=== PATIENT | male | born 1955 | race African-American/Black ===

== ENCOUNTER 2017-02-17 13:42 | Inpatient (IN) | payer MEDICARE, MEDICAID ==
[~2017-02-17] VITALS: Ht 167.6 cm; Wt 84.8 kg
[~2017-02-17 13:42] MED LIST: QUET25TA PO; VIC PO
[2017-02-17] MEDS ORDERED: METHYLPREDNISOLONE SOD SUCC 125 MG/2 ML VIAL IV STA (15:28)
[2017-02-17] MEDS ORDERED: ALBUTEROL (0.083%) 2.5MG/3ML NEB HHN STA (15:28)
[2017-02-17] MEDS ORDERED: ACETAMINOPHEN 325MG TABLET PO STA (15:28)
[2017-02-17] MEDS ORDERED: IPRATROPIUM BROMIDE (0.02%) 0.5MG/2.5ML NEB HHN STA (15:28)
[2017-02-17] MEDS ORDERED: SODIUM CHLORIDE 0.9% 1000ML BAG (SEPSIS BOLUS) IV ONE (15:30)
[2017-02-17] MEDS ORDERED: LEVOFLOXACIN 750MG PREMIX 150 ML IV ONE (15:30)
[2017-02-17 15:57] LABS: BASOPHILS % 0.3 % (0.0-2.0); EOSINOPHILS % 0.3 % (0.0-5.0); HEMATOCRIT. 28.9 % (42.0-52.0); HEMOGLOBIN. 8.8 g/dL (14.0-18.0); LYMPHOCYTES % 9.1 % (20.0-50.0); MEAN CORPUSCULAR HEMOGLOBIN 21.6 pg (28.0-32.0); MEAN CORPUSCULAR HGB CONC 30.6 g/dL (31.0-37.0); MEAN CORPUSCULAR VOLUME 70.6 fL (80.0-94.0); MEAN PLATELET VOLUME 7.2 fl (7.4-10.4); MONOCYTES % 12.4 % (2.0-8.0); NEUTROPHILS % 77.9 % (40.0-76.0); PLATELET 340 x1000/uL (130-400); RED BLOOD CELL COUNT 4.09 mill/uL (4.7-6.1); RED CELL DISTRIBUTION WIDTH 22.5 % (11.6-14.6); WHITE BLOOD COUNT 11.3 x1000/uL (4.5-11.0)
[2017-02-17 15:59] LABS: ADD RBC MORPHOLOGY YES; DIFFERENTIAL COMMENT 1
[2017-02-17 16:00] LABS: INR 1.2; PROTHROMBIN TIME 12.9 sec
[2017-02-17 16:03] LABS: ALBUMIN 3.4 g/dL (3.4-5.0); ANION GAP 15; CALCIUM 8.3 mg/dL (8.5-10.1); CARBON DIOXIDE 25 mEq/L (21-32); CHLORIDE 99 mEq/L (98-107); INDEX HEMOLYSI 1 (1-3); INDEX ICTERIC 1 (1-4); INDEX LIPEMIC 1 (1-3); UREA NITROGEN BLOOD 6 mg/dL (7-21)
[2017-02-17 16:06] LABS: ALANINE AMINOTRANSFERASE 38 IU/L (13-61)
[2017-02-17 16:09] LABS: eGFR > 60 mL/min (>60)
[2017-02-17 16:10] LABS: NT PRO B-TYPE NATRIURETIC PEP 8556 pg/mL (5-125); TROPONIN I < 0.02 ng/mL (0.00-0.04)
[2017-02-17 16:34] LABS: CLARITY URINE CLEAR (CLEAR); COLOR URINE YELLOW (YELLOW); GLUCOSE URINE NEGATIVE (NEGATIVE); KETONES URINE 1+ (NEGATIVE); LEUKOCYTE ESTERASE URINE NEGATIVE (NEGATIVE); NITRITE URINE NEGATIVE (NEGATIVE); OCCULT BLOOD URINE NEGATIVE (NEGATIVE); PH URINE >=9.0 (4.5-8.0); PROTEIN URINE NEGATIVE (NEGATIVE); SPECIFIC GRAVITY URINE 1.011 (1.005-1.030); UROBILINOGEN URINE 0.2 E.U./dL (0.2-1.0)
[2017-02-17] MEDS ORDERED: POTASSIUM CHLORIDE 20MEQ TABLET SR PO SCH (18:45)
[2017-02-17 19:00] LABS: HYPOCHROMASIA 2+; PLATELET ESTIMATE NORMAL
[2017-02-17 19:01] LABS: ANISOCYTOSIS 2+
[2017-02-17] MEDS ORDERED: CLONIDINE 0.1MG TABLET PO PRN (19:45)
[2017-02-17] MEDS ORDERED: ACETAMINOPHEN 325MG TABLET PO PRN (19:45)
[2017-02-17] MEDS ORDERED: MAGNESIUM/ALUMINUM HYDROXIDE/SIMETHICONE 30ML UDC PO PRN (19:45)
[2017-02-17] MEDS ORDERED: DIPHENHYDRAMINE 50MG/ML VIAL IV PRN (19:45)
[2017-02-17] MEDS ORDERED: ONDANSETRON HCL 4MG/2ML VIAL IV PRN (19:45)
[2017-02-17] MEDS ORDERED: IPRATROPIUM/ALBUTEROL 0.5-3(2.5)MG/3ML NEB INH PRN (19:45)
[2017-02-17] MEDS ORDERED: POTASSIUM CHLORIDE 20MEQ TABLET SR PO NR ×2 (20:00→23:00)
[2017-02-17 20:06] LABS: MAGNESIUM 1.7 mg/dL (1.8-2.4)
[2017-02-17 20:53] VITALS: BP 123/82
[2017-02-17 21:00] VITALS: BP 123/82
[2017-02-17] MEDS ORDERED: METHYLPREDNISOLONE SOD SUCC 125 MG/2 ML VIAL IV SCH (22:00)
[2017-02-17] MEDS ORDERED: HYDR25TA PO (22:09)
[2017-02-17] MEDS ORDERED: HYDR-519 PO (22:10)
[2017-02-17] MEDS ORDERED: TRAM50TA3 PO (22:11)
[2017-02-17] MEDS ORDERED: QUETIAPINE FUMARATE 25MG TABLET PO SCH (22:30)
[2017-02-17] MEDS ORDERED: TRAMADOL 50MG TABLET PO PRN (22:30)
[2017-02-17] MEDS ORDERED: MAGNESIUM 2 G PREMIX 50 ML IV NR (22:30)
[2017-02-17] MEDS ORDERED: QUETIAPINE FUMARATE 100MG TABLET PO SCH (23:15)
[2017-02-17] MEDS: BUDESONIDE 0.5MG/2ML NEB HHN SCH (23:15)
[2017-02-17] MEDS: PROMETHAZINE/DEXTROMETHORPHAN 6.25-15MG/5ML BOTTLE 120ML PO PRN (23:37)
[2017-02-17] MEDS: TAMSULOSIN HCL 0.4MG SR CAPSULE PO SCH (23:37)
[2017-02-18] VITALS: BP 115/68
[2017-02-18] MEDS: IPRATROPIUM/ALBUTEROL 0.5-3(2.5)MG/3ML NEB HHN SCH ×6 (01:05→16:30)
[2017-02-18 03:54] LABS: *AMPHETAMINES SCREEN URINE NEGATIVE (NEGATIVE); *BARBITURATES SCREEN URINE NEGATIVE (NEGATIVE); *BENZODIAZEPINES SCREEN URINE NEGATIVE (NEGATIVE); *COCAINE SCREEN URINE PRESUMTIVE POSITIVE (NEGATIVE); CANNABINOID URINE SCREEN NEGATIVE (NEGATIVE); ECSTASY MDMA SCREEN URINE NEGATIVE (NEGATIVE); METHADONE URINE SCREEN NEGATIVE (NEGATIVE); OPIATES URINE SCREEN PRESUMTIVE POSITIVE (NEGATIVE); PHENCYCLIDINE URINE SCREEN NEGATIVE (NEGATIVE)
[2017-02-18 04:00] VITALS: BP 117/67
[2017-02-18] MEDS: PROMETHAZINE/DEXTROMETHORPHAN 6.25-15MG/5ML BOTTLE 120ML PO PRN ×2 (06:01→08:47)
[2017-02-18 07:50] LABS: ANION GAP 14; CALCIUM 8.3 mg/dL (8.5-10.1); CARBON DIOXIDE 26 mEq/L (21-32); CHLORIDE 102 mEq/L (98-107); INDEX HEMOLYSI 1 (1-3); INDEX ICTERIC 1 (1-4); INDEX LIPEMIC 1 (1-3); MAGNESIUM 2.4 mg/dL (1.8-2.4); UREA NITROGEN BLOOD 8 mg/dL (7-21); eGFR > 60 mL/min (>60)
[2017-02-18 08:00] VITALS: BP 146/71
[2017-02-18] MEDS: TAMSULOSIN HCL 0.4MG SR CAPSULE PO SCH (08:44)
[2017-02-18] MEDS ORDERED: GUAIFENESIN 600MG ER TABLET PO SCH (09:00)
[2017-02-18] MEDS ORDERED: POTASSIUM CHLORIDE 20MEQ TABLET SR PO SCH (09:00)
[2017-02-18] MEDS ORDERED: HYDROCHLOROTHIAZIDE 25MG TABLET PO SCH (09:00)
[2017-02-18] MEDS ORDERED: PREDNISONE 20MG TABLET PO SCH (09:00)
[2017-02-18] MEDS: BUDESONIDE 0.5MG/2ML NEB HHN SCH (11:15)
[2017-02-18 12:00] VITALS: BP 124/75
[2017-02-18] MEDS ORDERED: LEVOFLOXACIN 500MG PREMIX 100 ML IV SCH ×2 (15:00)
[2017-02-18 16:00] VITALS: BP 110/70
[2017-02-18 16:06] VITALS: BP 121/73
[2017-02-18] MEDS ORDERED: QUETIAPINE FUMARATE 25MG TABLET PO SCH (21:00)
== END 2017-02-18 17:20 | disposition home or self-care (01) | DRG 291 ==
LOC: ER 14:35 → 7WST 19:03
PROVIDERS: ADMIT Internal Medicine; ATTEND Internal Medicine
DX: I50.33 Acute on chronic diastolic (congestive) heart failure (principal); J96.00 Acute respiratory failure, unspecified whether with hypoxia or hypercapnia; J44.1 Chronic obstructive pulmonary disease with (acute) exacerbation; E87.6 Hypokalemia; F17.200 Nicotine dependence, unspecified, uncomplicated; G89.29 Other chronic pain; Z60.2 Problems related to living alone; E87.8 Other disorders of electrolyte and fluid balance, not elsewhere classified; F14.90 Cocaine use, unspecified, uncomplicated; F19.10 Other psychoactive substance abuse, uncomplicated; I11.0 Hypertensive heart disease with heart failure; K21.9 Gastro-esophageal reflux disease without esophagitis; S62.501A Fracture of unspecified phalanx of right thumb, initial encounter for closed fracture; M54.30 Sciatica, unspecified side; F99 Mental disorder, not otherwise specified; N40.0 Benign prostatic hyperplasia without lower urinary tract symptoms; D72.829 Elevated white blood cell count, unspecified; Z59.0 Homelessness; Z88.6 Allergy status to analgesic agent; Z79.899 Other long term (current) drug therapy; Z72.89 Other problems related to lifestyle; Z87.11 Personal history of peptic ulcer disease
CPT/HCPCS: 36415; 71010; 73110; 73130; 80048; 80053; 80305; 81003; 82962; 83605; 83735; 83880; 84484; 85025; 85610; 86850; 86900; 87040; 87086; 87804; 93005; 94640; 96365; 96366; 97161; 99285; J1956; J2930; J3475; J7030; J7050; J7512; J7611; J7620; J7626

== ENCOUNTER 2017-11-16 16:49 | Emergency (ER) | payer MEDICARE, MEDICAID ==
[~2017-11-16] VITALS: Ht 167.6 cm; Wt 76.0 kg
[~2017-11-16 16:49] MED LIST changes: +HYDR-519 PO; +HYDR25TA PO; +TRAM50TA3 PO
[2017-11-16] MEDS ORDERED: LIDOCAINE HCL 1% 20ML VIAL (Pyxis) INJ INFIL ONE (20:00)
[2017-11-16] MEDS ORDERED: HYDROCODONE/ACETAMINOPHEN 10/325MG TABLET PO NR (20:00)
[2017-11-16 20:05] VITALS: BP 127/73
== END 2017-11-16 22:25 | disposition home or self-care (01) ==
LOC: ER 16:54
DX: S00.03XA Contusion of scalp, initial encounter (principal); R51 Headache; V49.69XA Unspecified car occupant injured in collision with other motor vehicles in traffic accident, initial encounter; Y93.89 Activity, other specified; Y92.410 Unspecified street and highway as the place of occurrence of the external cause; I11.0 Hypertensive heart disease with heart failure; I50.9 Heart failure, unspecified; J44.9 Chronic obstructive pulmonary disease, unspecified; K21.9 Gastro-esophageal reflux disease without esophagitis
CPT/HCPCS: 10060; 70450; 99284; J3490

== ENCOUNTER → 2018-02-26 | Outpatient (CLI) | payer MEDICARE, MEDICAID ==
[~2018-02-26] MED LIST changes: +ATEN-42 PO
== END | disposition home or self-care (01) ==
LOC: CT 10:48
PROVIDERS: ATTEND Internal Medicine Critical Care Medicine
DX: J84.10 Pulmonary fibrosis, unspecified (principal); E11.9 Type 2 diabetes mellitus without complications; E78.5 Hyperlipidemia, unspecified; I10 Essential (primary) hypertension; F17.200 Nicotine dependence, unspecified, uncomplicated; Z79.899 Other long term (current) drug therapy
CPT/HCPCS: 71250

== ENCOUNTER 2018-07-14 17:56 | Inpatient (IN) | payer MEDICARE, MEDICAID ==
[~2018-07-14] VITALS: Ht 177.8 cm; Wt 76.0 kg
[~2018-07-14 17:56] MED LIST changes: -ATEN-42 PO; -HYDR-519 PO; -HYDR25TA PO; +PANT40SU MT; -VIC PO
[2018-07-14] MEDS ORDERED: IPRATROPIUM BROMIDE (0.02%) 0.5MG/2.5ML NEB HHN STA (18:09)
[2018-07-14] MEDS: ALBUTEROL (0.083%) 2.5MG/3ML NEB HHN SCH ×3 (18:25→19:30)
[2018-07-14 19:24] LABS: MEAN CORPUSCULAR HEMOGLOBIN 21.9 pg (28.0-32.0); MEAN CORPUSCULAR VOLUME 74.7 fL (80.0-94.0); MEAN PLATELET VOLUME 7.7 fl (7.4-10.4); PLATELET 260 x1000/uL (130-400); RED BLOOD CELL COUNT 2.17 mill/uL (4.7-6.1); RED CELL DISTRIBUTION WIDTH 22.1 % (11.6-14.6)
[2018-07-14 19:28] LABS: HEMATOCRIT. 16.2 % (42.0-52.0); HEMOGLOBIN. 4.8 g/dL (14.0-18.0)
[2018-07-14 19:39] LABS: CHLORIDE 97 mEq/L (98-107)
[2018-07-14] MEDS ORDERED: DEXTROSE 50% WATER 50ML SYRINGE IV ONE ×2 (19:58→20:00)
[2018-07-14 20:19] LABS: PLATELET ESTIMATE NORMAL
[2018-07-14] MEDS ORDERED: ALBUTEROL (0.083%) 2.5MG/3ML NEB HHN STA (20:21)
[2018-07-14 20:31] LABS: BG BASE EXCESS -9.5 mmol/L (-2.0-2.0); BG CARBOXYHEMOGLOBIN 0.7 % (0.5-1.5); BG DEOXYHEMOGLOBIN 30.3 % (0.0-5.0); BG FRACTION INSPIRED OXYGEN 40; BG METHEMOGLOBIN 0.3 % (0.0-1.5); BG OXYGEN SATURATION 69.4 % (92.0-98.5); BG OXYHEMOGLOBIN 68.7 % (94.0-97.0); BG PCO2 26.6 mmHg (35.0-45.0); BG PO2 43.6 mmHg (75.0-100.0); BG SAMPLE SITE RIGHT RADIAL; BG TOTAL HEMOGLOBIN 5.3 g/dL (12.0-18.0); BG VENT MODE NASAL CANNULA
[2018-07-14] MEDS ORDERED: ZOLPIDEM TARTRATE 5MG TABLET PO PRN (21:45)
[2018-07-14] MEDS ORDERED: MAGNESIUM/ALUMINUM HYDROXIDE/SIMETHICONE 30ML UDC PO PRN (21:45)
[2018-07-14] MEDS ORDERED: ONDANSETRON HCL 4MG/2ML INJ IV PRN (21:45)
[2018-07-14] MEDS ORDERED: DOCUSATE SODIUM 100MG CAPSULE PO PRN (21:45)
[2018-07-14] MEDS ORDERED: NITROGLYCERIN 0.4MG TABLET SL SL PRN (21:45)
[2018-07-14] MEDS ORDERED: HALOPERIDOL LACTATE 5MG/ML VIAL IM PRN (21:45)
[2018-07-14] MEDS ORDERED: NA PHOS,M-B/NA PHOS,DI-BA ENEMA 118ML PR PRN (21:45)
[2018-07-14] MEDS ORDERED: IPRATROPIUM/ALBUTEROL 0.5-3(2.5)MG/3ML NEB INH PRN (21:45)
[2018-07-14] MEDS ORDERED: CLONIDINE 0.1MG TABLET PO PRN (21:45)
[2018-07-14 22:14] LABS: TOTAL IRON BINDING CAPACITY 378 ug/dL (250-450)
[2018-07-14] MEDS ORDERED: DEXTROSE 50% WATER 50ML SYRINGE IV PRN (22:15)
[2018-07-14 22:35] LABS: FOLIC ACID (FOLATE) SERUM > 20.00 ng/mL (>5.38)
[2018-07-14 22:43] LABS: VITAMIN B12 SERUM 721 pg/mL (211-911)
[2018-07-15] VITALS (24 sets, daily range): BP systolic 100–160; BP diastolic 44–93
[2018-07-15] MEDS: IPRATROPIUM/ALBUTEROL 0.5-3(2.5)MG/3ML NEB HHN SCH ×6 (01:00→20:49)
[2018-07-15] MEDS: ACETAMINOPHEN 325MG TABLET PO PRN (01:15)
[2018-07-15] MEDS: GUAIFENESIN 200MG/10ML SUGAR FREE UDC PO PRN (01:39)
[2018-07-15] MEDS ORDERED: KCL 20MEQ/100ML PREMIX 100 ML IV NR ×2 (03:00→08:00)
[2018-07-15] MEDS ORDERED: PANTOPRAZOLE 80 MG in SODIUM CHLORIDE 0.9% 100 ML IV SCH ×4 (03:00)
[2018-07-15 03:28] LABS: *AMPHETAMINES SCREEN URINE NEGATIVE (NEGATIVE); *BARBITURATES SCREEN URINE NEGATIVE (NEGATIVE); *BENZODIAZEPINES SCREEN URINE NEGATIVE (NEGATIVE); *COCAINE SCREEN URINE NEGATIVE (NEGATIVE)
[2018-07-15 03:29] LABS: CANNABINOID URINE SCREEN NEGATIVE (NEGATIVE); METHADONE URINE SCREEN NEGATIVE (NEGATIVE); OPIATES URINE SCREEN NEGATIVE (NEGATIVE); PHENCYCLIDINE URINE SCREEN NEGATIVE (NEGATIVE)
[2018-07-15 05:54] LABS: ETHANOL BLOOD < 10 mg/dL
[2018-07-15] MEDS: BLOOD SUGAR DIAGNOSTIC STRIP TEST SCH ×4 (06:07→21:12)
[2018-07-15] MEDS: INSULIN LISPRO 100 UNITS/ML SUBCUT SCH ×4 (06:25→21:14)
[2018-07-15] MEDS ORDERED: HYDR-4009 PO (06:33)
[2018-07-15] MEDS: PANTOPRAZOLE 80 MG in SODIUM CHLORIDE 0.9% 100 ML IV SCH ×2 (08:04→16:21)
[2018-07-15] MEDS: DEXT 5%/0.45% NACL 1000ML 1,000 ML IV SCH ×2 (08:04→14:52)
[2018-07-15] MEDS: SPIRONOLACTONE 25MG TABLET PO SCH ×2 (08:05→21:12)
[2018-07-15] MEDS: GUAIFENESIN/DM 600MG/30MG ER TAB 12HR PO SCH ×2 (08:05→21:11)
[2018-07-15] MEDS: FUROSEMIDE 40MG/4ML VIAL IVP SCH ×2 (08:05→21:11)
[2018-07-15] MEDS: LISINOPRIL 20MG TABLET PO SCH ×2 (08:05→21:12)
[2018-07-15] MEDS ORDERED: QUETIAPINE FUMARATE 50MG TABLET PO SCH (09:00)
[2018-07-15] MEDS: BUDESONIDE 0.5MG/2ML NEB HHN SCH ×2 (09:14→20:49)
[2018-07-15] MEDS: LORAZEPAM 0.5MG TABLET PO PRN ×2 (10:32→14:51)
[2018-07-15 11:23] LABS: BG BASE EXCESS 4.5 mmol/L (-2.0-2.0); BG BILEVEL POS AIRWAY PRESSURE 15/5; BG CARBOXYHEMOGLOBIN 1.2 % (0.5-1.5); BG DEOXYHEMOGLOBIN 2.5 % (0.0-5.0); BG FRACTION INSPIRED OXYGEN 75; BG HCO3 ACT 28.6 mmol/L (22.0-26.0); BG METHEMOGLOBIN 0.4 % (0.0-1.5); BG OXYGEN SATURATION 97.5 % (92.0-98.5); BG OXYHEMOGLOBIN 95.9 % (94.0-97.0); BG PCO2 40.5 mmHg (35.0-45.0); BG PH 7.467 (7.350-7.450); BG PO2 102.3 mmHg (75.0-100.0); BG SAMPLE SITE RIGHT RADIAL; BG TOTAL HEMOGLOBIN 8.9 g/dL (12.0-18.0); BG VENT MODE MASK - BIPAP; BG VENT RATE 20 set
[2018-07-15] MEDS: THIAMINE HCL 100MG TABLET PO SCH (11:30)
[2018-07-15] MEDS: FOLIC ACID 1MG TABLET PO SCH (11:30)
[2018-07-15] MEDS: MULTIVITAMINS,THER W-MINERALS TABLET PO SCH (11:30)
[2018-07-15] MEDS: METHYLPREDNISOLONE SOD SUCC 40 MG/ML VIAL IV SCH ×2 (11:30→17:08)
[2018-07-15 12:32] LABS: HEMATOCRIT. 23.7 % (42.0-52.0); HEMOGLOBIN. 7.8 g/dL (14.0-18.0); MEAN CORPUSCULAR HEMOGLOBIN 24.6 pg (28.0-32.0); MEAN CORPUSCULAR VOLUME 75.2 fL (80.0-94.0); MEAN PLATELET VOLUME 7.5 fl (7.4-10.4); PLATELET 196 x1000/uL (130-400); RED BLOOD CELL COUNT 3.15 mill/uL (4.7-6.1); RED CELL DISTRIBUTION WIDTH 21.5 % (11.6-14.6)
[2018-07-15 12:40] LABS: CHLORIDE 97 mEq/L (98-107)
[2018-07-15] MEDS ORDERED: POTASSIUM CHLORIDE 20MEQ TABLET SR PO NR (13:00)
[2018-07-15] MEDS: LEVOFLOXACIN 750MG PREMIX 150 ML IV SCH (13:06)
[2018-07-15 13:44] LABS: PLATELET ESTIMATE NORMAL
[2018-07-15] MEDS ORDERED: MAGNESIUM 2 G PREMIX 50 ML IV NR (15:00)
[2018-07-15] MEDS: PANTOPRAZOLE SODIUM 40 MG/VIAL IV SCH (16:21)
[2018-07-15] MEDS: SUCRALFATE 1 G/10 ML UDC PO SCH ×2 (17:07→23:51)
[2018-07-15] MEDS: QUETIAPINE FUMARATE 100MG TABLET PO SCH (21:12)
[2018-07-16] VITALS (12 sets, daily range): BP systolic 91–111; BP diastolic 40–89
[2018-07-16] MEDS: IPRATROPIUM/ALBUTEROL 0.5-3(2.5)MG/3ML NEB HHN SCH ×6 (00:13→21:00)
[2018-07-16] MEDS: METHYLPREDNISOLONE SOD SUCC 40 MG/ML VIAL IV SCH ×3 (02:36→17:42)
[2018-07-16] MEDS: PANTOPRAZOLE 80 MG in SODIUM CHLORIDE 0.9% 100 ML IV SCH (02:53)
[2018-07-16] MEDS: DEXT 5%/0.45% NACL 1000ML 1,000 ML IV SCH ×2 (04:03→17:41)
[2018-07-16] MEDS: SUCRALFATE 1 G/10 ML UDC PO SCH ×3 (05:50→17:42)
[2018-07-16] MEDS: BLOOD SUGAR DIAGNOSTIC STRIP TEST SCH ×4 (06:24→21:05)
[2018-07-16 07:23] LABS: HEMATOCRIT. 26.1 % (42.0-52.0); HEMOGLOBIN. 8.5 g/dL (14.0-18.0); MEAN CORPUSCULAR HEMOGLOBIN 25.4 pg (28.0-32.0); MEAN CORPUSCULAR VOLUME 77.6 fL (80.0-94.0); MEAN PLATELET VOLUME 7.9 fl (7.4-10.4); PLATELET 205 x1000/uL (130-400); RED BLOOD CELL COUNT 3.36 mill/uL (4.7-6.1); RED CELL DISTRIBUTION WIDTH 21.4 % (11.6-14.6)
[2018-07-16 07:40] LABS: CHLORIDE 95 mEq/L (98-107)
[2018-07-16] MEDS: INSULIN LISPRO 100 UNITS/ML SUBCUT SCH ×4 (08:21→21:07)
[2018-07-16] MEDS: GUAIFENESIN/DM 600MG/30MG ER TAB 12HR PO SCH ×2 (08:21→21:05)
[2018-07-16] MEDS: FOLIC ACID 1MG TABLET PO SCH (08:21)
[2018-07-16] MEDS: POTASSIUM CHLORIDE 20MEQ TABLET SR PO SCH (08:22)
[2018-07-16] MEDS: MULTIVITAMINS,THER W-MINERALS TABLET PO SCH (08:22)
[2018-07-16] MEDS: THIAMINE HCL 100MG TABLET PO SCH (08:22)
[2018-07-16] MEDS: PANTOPRAZOLE SODIUM 40 MG/VIAL IV SCH ×2 (08:22→17:41)
[2018-07-16] MEDS: FUROSEMIDE 40MG/4ML VIAL IVP SCH ×2 (08:22→21:05)
[2018-07-16] MEDS: SPIRONOLACTONE 25MG TABLET PO SCH ×2 (08:22→21:05)
[2018-07-16] MEDS: LISINOPRIL 20MG TABLET PO SCH ×2 (08:23→21:05)
[2018-07-16] MEDS: BUDESONIDE 0.5MG/2ML NEB HHN SCH ×2 (09:14→21:01)
[2018-07-16 10:42] LABS: PLATELET ESTIMATE NORMAL
[2018-07-16] MEDS ORDERED: POTASSIUM CHLORIDE 20MEQ TABLET SR PO NR (12:00)
[2018-07-16] MEDS: FERROUS SULFATE 325MG TABLET PO SCH ×2 (12:10→17:41)
[2018-07-16] MEDS: LEVOFLOXACIN 750MG PREMIX 150 ML IV SCH (12:10)
[2018-07-16 15:26] LABS: HEMATOCRIT 24.9 % (42.0-52.0)
[2018-07-16] MEDS: QUETIAPINE FUMARATE 100MG TABLET PO SCH (21:05)
[2018-07-16] MEDS: ASCORBIC ACID 500 MG TABLET PO SCH (21:05)
[2018-07-16] MEDS: GUAIFENESIN 200MG/10ML SUGAR FREE UDC PO PRN (21:12)
[2018-07-17] VITALS (16 sets, daily range): BP systolic 95–132; BP diastolic 32–73
[2018-07-17] MEDS: SUCRALFATE 1 G/10 ML UDC PO SCH ×5 (00:32→23:18)
[2018-07-17] MEDS: IPRATROPIUM/ALBUTEROL 0.5-3(2.5)MG/3ML NEB HHN SCH ×5 (01:07→21:09)
[2018-07-17] MEDS: METHYLPREDNISOLONE SOD SUCC 40 MG/ML VIAL IV SCH ×3 (02:02→17:35)
[2018-07-17] MEDS: INSULIN LISPRO 100 UNITS/ML SUBCUT SCH ×4 (06:24→20:33)
[2018-07-17] MEDS: DEXT 5%/0.45% NACL 1000ML 1,000 ML IV SCH (06:24)
[2018-07-17] MEDS: BLOOD SUGAR DIAGNOSTIC STRIP TEST SCH ×4 (06:24→20:31)
[2018-07-17 07:48] LABS: HEMATOCRIT. 24.4 % (42.0-52.0); MEAN CORPUSCULAR HEMOGLOBIN 25.6 pg (28.0-32.0); MEAN CORPUSCULAR VOLUME 77.5 fL (80.0-94.0); MEAN PLATELET VOLUME 7.8 fl (7.4-10.4); PLATELET 184 x1000/uL (130-400); RED BLOOD CELL COUNT 3.14 mill/uL (4.7-6.1); RED CELL DISTRIBUTION WIDTH 21.2 % (11.6-14.6)
[2018-07-17] MEDS: ASCORBIC ACID 500 MG TABLET PO SCH ×2 (07:57→19:43)
[2018-07-17] MEDS: POTASSIUM CHLORIDE 20MEQ TABLET SR PO SCH ×2 (07:59→17:34)
[2018-07-17] MEDS: FOLIC ACID 1MG TABLET PO SCH (07:59)
[2018-07-17] MEDS: FUROSEMIDE 40MG/4ML VIAL IVP SCH ×2 (07:59→19:42)
[2018-07-17] MEDS: FERROUS SULFATE 325MG TABLET PO SCH ×3 (07:59→17:34)
[2018-07-17] MEDS: MULTIVITAMINS,THER W-MINERALS TABLET PO SCH (07:59)
[2018-07-17] MEDS: GUAIFENESIN/DM 600MG/30MG ER TAB 12HR PO SCH ×2 (07:59→19:43)
[2018-07-17] MEDS: PANTOPRAZOLE SODIUM 40 MG/VIAL IV SCH ×2 (07:59→17:36)
[2018-07-17] MEDS: THIAMINE HCL 100MG TABLET PO SCH (08:00)
[2018-07-17] MEDS: LISINOPRIL 20MG TABLET PO SCH ×3 (08:11→20:25)
[2018-07-17 08:28] LABS: CHLORIDE 91 mEq/L (98-107)
[2018-07-17] MEDS: SODIUM CHLORIDE 0.9% 1,000 ML IV SCH (09:30)
[2018-07-17] MEDS: SPIRONOLACTONE 25MG TABLET PO SCH ×2 (09:53→20:25)
[2018-07-17] MEDS: GUAIFENESIN 200MG/10ML SUGAR FREE UDC PO PRN ×2 (10:03→23:18)
[2018-07-17 10:54] LABS: BG BASE EXCESS 1.1 mmol/L (-2.0-2.0); BG BILEVEL POS AIRWAY PRESSURE 15/5; BG CARBOXYHEMOGLOBIN 0.3 % (0.5-1.5); BG DEOXYHEMOGLOBIN 12.4 % (0.0-5.0); BG FRACTION INSPIRED OXYGEN 75; BG HCO3 ACT 25.3 mmol/L (22.0-26.0); BG METHEMOGLOBIN 0.4 % (0.0-1.5); BG OXYGEN SATURATION 87.5 % (92.0-98.5); BG OXYHEMOGLOBIN 86.9 % (94.0-97.0); BG PCO2 38.5 mmHg (35.0-45.0); BG PH 7.436 (7.350-7.450); BG PO2 52.3 mmHg (75.0-100.0); BG SAMPLE SITE RIGHT RADIAL; BG TOTAL HEMOGLOBIN 9.1 g/dL (12.0-18.0); BG VENT MODE MASK - BIPAP
[2018-07-17] MEDS: LEVOFLOXACIN 750MG PREMIX 150 ML IV SCH (13:44)
[2018-07-17 14:20] LABS: PLATELET ESTIMATE NORMAL
[2018-07-17] MEDS ORDERED: LIDOCAINE HCL/PF 1% 2ML VIAL ONE (14:47)
[2018-07-17] MEDS: ACETAMINOPHEN 325MG TABLET PO PRN (19:43)
[2018-07-17] MEDS: QUETIAPINE FUMARATE 100MG TABLET PO SCH (20:25)
[2018-07-17] MEDS: BUDESONIDE 0.5MG/2ML NEB HHN SCH (21:08)
[2018-07-17] MEDS ORDERED: IOHEXOL-350 100 ML BOTTLE ONE (22:48)
[2018-07-18] VITALS (12 sets, daily range): BP systolic 104–152; BP diastolic 49–69
[2018-07-18] MEDS: IPRATROPIUM/ALBUTEROL 0.5-3(2.5)MG/3ML NEB HHN SCH ×6 (00:54→20:23)
[2018-07-18] MEDS: METHYLPREDNISOLONE SOD SUCC 40 MG/ML VIAL IV SCH ×3 (01:34→18:28)
[2018-07-18] MEDS: SODIUM CHLORIDE 0.9% 1,000 ML IV SCH (05:30)
[2018-07-18] MEDS: SUCRALFATE 1 G/10 ML UDC PO SCH ×3 (06:42→18:28)
[2018-07-18] MEDS: BLOOD SUGAR DIAGNOSTIC STRIP TEST SCH ×4 (06:44→20:33)
[2018-07-18] MEDS: FERROUS SULFATE 325MG TABLET PO SCH ×3 (07:53→17:20)
[2018-07-18] MEDS: INSULIN LISPRO 100 UNITS/ML SUBCUT SCH ×4 (07:54→20:33)
[2018-07-18 08:20] LABS: HEMATOCRIT 26.1 % (42.0-52.0); HEMOGLOBIN 8.3 g/dL (14.0-18.0); MEAN CORPUSCULAR VOLUME 78.8 fL (80.0-94.0); PLATELET 215 x1000/uL (130-400); RED BLOOD CELL COUNT 3.32 mill/uL (4.7-6.1); RED CELL DISTRIBUTION WIDTH 22.2 % (11.6-14.6)
[2018-07-18] MEDS: BUDESONIDE 0.5MG/2ML NEB HHN SCH ×2 (08:33→20:22)
[2018-07-18 08:39] LABS: CHLORIDE 97 mEq/L (98-107)
[2018-07-18] MEDS: GUAIFENESIN/DM 600MG/30MG ER TAB 12HR PO SCH ×2 (08:58→20:09)
[2018-07-18] MEDS: THIAMINE HCL 100MG TABLET PO SCH (08:59)
[2018-07-18] MEDS: LISINOPRIL 20MG TABLET PO SCH ×2 (08:59→20:10)
[2018-07-18] MEDS: MULTIVITAMINS,THER W-MINERALS TABLET PO SCH (08:59)
[2018-07-18] MEDS: FUROSEMIDE 40MG/4ML VIAL IVP SCH ×2 (08:59→20:10)
[2018-07-18] MEDS: POTASSIUM CHLORIDE 20MEQ TABLET SR PO SCH ×2 (08:59→17:00)
[2018-07-18] MEDS: PANTOPRAZOLE SODIUM 40 MG/VIAL IV SCH ×2 (08:59→17:00)
[2018-07-18] MEDS: ASCORBIC ACID 500 MG TABLET PO SCH ×2 (08:59→20:10)
[2018-07-18] MEDS: SPIRONOLACTONE 25MG TABLET PO SCH ×2 (08:59→20:09)
[2018-07-18] MEDS: FOLIC ACID 1MG TABLET PO SCH (09:04)
[2018-07-18] MEDS: LEVOFLOXACIN 750MG PREMIX 150 ML IV SCH (12:09)
[2018-07-18] MEDS: QUETIAPINE FUMARATE 100MG TABLET PO SCH (20:10)
[2018-07-18] MEDS: ACETAMINOPHEN 325MG TABLET PO PRN (20:22)
[2018-07-18] MEDS ORDERED: BUDESONIDE 0.5MG/2ML NEB ONE (20:29)
[2018-07-19] VITALS (13 sets, daily range): BP systolic 108–162; BP diastolic 49–80
[2018-07-19] MEDS: SUCRALFATE 1 G/10 ML UDC PO SCH ×5 (00:01→23:03)
[2018-07-19] MEDS: IPRATROPIUM/ALBUTEROL 0.5-3(2.5)MG/3ML NEB HHN SCH ×6 (00:20→21:57)
[2018-07-19] MEDS: SODIUM CHLORIDE 0.9% 1,000 ML IV SCH ×4 (01:30→23:07)
[2018-07-19] MEDS: METHYLPREDNISOLONE SOD SUCC 40 MG/ML VIAL IV SCH ×3 (04:27→18:26)
[2018-07-19] MEDS: BLOOD SUGAR DIAGNOSTIC STRIP TEST SCH ×4 (05:59→21:00)
[2018-07-19] MEDS: INSULIN LISPRO 100 UNITS/ML SUBCUT SCH ×4 (07:20→21:00)
[2018-07-19] MEDS: POTASSIUM CHLORIDE 20MEQ TABLET SR PO SCH ×2 (08:31→18:26)
[2018-07-19] MEDS: PANTOPRAZOLE SODIUM 40 MG/VIAL IV SCH ×2 (08:31→18:26)
[2018-07-19] MEDS: FOLIC ACID 1MG TABLET PO SCH (08:32)
[2018-07-19] MEDS: FUROSEMIDE 40MG/4ML VIAL IVP SCH ×2 (08:32→22:11)
[2018-07-19] MEDS: LISINOPRIL 20MG TABLET PO SCH ×2 (08:32→22:13)
[2018-07-19] MEDS: MULTIVITAMINS,THER W-MINERALS TABLET PO SCH (08:32)
[2018-07-19] MEDS: SPIRONOLACTONE 25MG TABLET PO SCH ×2 (08:32→21:00)
[2018-07-19] MEDS: THIAMINE HCL 100MG TABLET PO SCH (08:32)
[2018-07-19] MEDS: GUAIFENESIN/DM 600MG/30MG ER TAB 12HR PO SCH ×2 (08:32→22:12)
[2018-07-19] MEDS: ASCORBIC ACID 500 MG TABLET PO SCH ×2 (08:33→22:14)
[2018-07-19] MEDS: FERROUS SULFATE 325MG TABLET PO SCH ×3 (08:33→18:26)
[2018-07-19] MEDS: BUDESONIDE 0.5MG/2ML NEB HHN SCH ×2 (12:01→21:57)
[2018-07-19] MEDS: LEVOFLOXACIN 750MG PREMIX 150 ML IV SCH (12:47)
[2018-07-19] MEDS: QUETIAPINE FUMARATE 100MG TABLET PO SCH (22:13)
[2018-07-20] VITALS (11 sets, daily range): BP systolic 120–156; BP diastolic 53–90
[2018-07-20] MEDS ORDERED: ZOLPIDEM TARTRATE 5MG TABLET PO PRN (00:15)
[2018-07-20] MEDS: IPRATROPIUM/ALBUTEROL 0.5-3(2.5)MG/3ML NEB HHN SCH ×6 (02:05→20:40)
[2018-07-20] MEDS: METHYLPREDNISOLONE SOD SUCC 40 MG/ML VIAL IV SCH ×2 (06:11→17:20)
[2018-07-20] MEDS: BLOOD SUGAR DIAGNOSTIC STRIP TEST SCH ×4 (06:11→21:28)
[2018-07-20] MEDS: SUCRALFATE 1 G/10 ML UDC PO SCH ×3 (06:11→17:21)
[2018-07-20 07:00] LABS: HEMATOCRIT. 29.2 % (42.0-52.0); HEMOGLOBIN. 9.1 g/dL (14.0-18.0); MEAN CORPUSCULAR HEMOGLOBIN 24.7 pg (28.0-32.0); MEAN PLATELET VOLUME 7.8 fl (7.4-10.4); PLATELET 302 x1000/uL (130-400); RED CELL DISTRIBUTION WIDTH 22.5 % (11.6-14.6)
[2018-07-20] MEDS: FUROSEMIDE 40MG/4ML VIAL IVP SCH ×2 (08:40→21:34)
[2018-07-20] MEDS: MULTIVITAMINS,THER W-MINERALS TABLET PO SCH (08:40)
[2018-07-20] MEDS: PANTOPRAZOLE SODIUM 40 MG/VIAL IV SCH ×2 (08:40→16:13)
[2018-07-20] MEDS: FERROUS SULFATE 325MG TABLET PO SCH ×3 (08:41→16:21)
[2018-07-20] MEDS: GUAIFENESIN/DM 600MG/30MG ER TAB 12HR PO SCH ×2 (08:41→21:35)
[2018-07-20] MEDS: THIAMINE HCL 100MG TABLET PO SCH (08:41)
[2018-07-20] MEDS: LISINOPRIL 20MG TABLET PO SCH ×2 (08:41→21:35)
[2018-07-20] MEDS: POTASSIUM CHLORIDE 20MEQ TABLET SR PO SCH ×2 (08:41→16:13)
[2018-07-20] MEDS: ASCORBIC ACID 500 MG TABLET PO SCH ×2 (08:41→21:35)
[2018-07-20] MEDS: SPIRONOLACTONE 25MG TABLET PO SCH ×2 (08:41→21:39)
[2018-07-20 08:42] LABS: CHLORIDE 102 mEq/L (98-107)
[2018-07-20] MEDS: FOLIC ACID 1MG TABLET PO SCH (08:42)
[2018-07-20 08:54] LABS: BG BASE EXCESS -2.6 mmol/L (-2.0-2.0); BG BILEVEL POS AIRWAY PRESSURE ST=15/5; BG CARBOXYHEMOGLOBIN 0.5 % (0.5-1.5); BG DEOXYHEMOGLOBIN 14.2 % (0.0-5.0); BG FRACTION INSPIRED OXYGEN 90; BG HCO3 ACT 21.2 mmol/L (22.0-26.0); BG METHEMOGLOBIN 0.6 % (0.0-1.5); BG OXYGEN SATURATION 85.6 % (92.0-98.5); BG OXYHEMOGLOBIN 84.7 % (94.0-97.0); BG PCO2 32.9 mmHg (35.0-45.0); BG PH 7.427 (7.350-7.450); BG PO2 53.5 mmHg (75.0-100.0); BG PRESSURE SUPPORT 10; BG SAMPLE SITE LEFT RADIAL; BG TOTAL HEMOGLOBIN 9.9 g/dL (12.0-18.0); BG VENT MODE MASK - BIPAP; BG VENT RATE 20 set
[2018-07-20] MEDS: INSULIN LISPRO 100 UNITS/ML SUBCUT SCH ×4 (08:58→21:36)
[2018-07-20] MEDS: BUDESONIDE 0.5MG/2ML NEB HHN SCH ×2 (09:16→20:41)
[2018-07-20] MEDS ORDERED: METRONIDAZOLE 500 MG PREMIX 100 ML IV SCH (12:00)
[2018-07-20] MEDS: CEFEPIME 1,000 MG in DEXTROSE 5% WATER 50 ML IV SCH (12:48)
[2018-07-20 13:45] LABS: PLATELET ESTIMATE NORMAL
[2018-07-20] MEDS: METRONIDAZOLE 500 MG PREMIX 100 ML IV SCH ×2 (13:56→21:37)
[2018-07-20] MEDS: GUAIFENESIN 200MG/10ML SUGAR FREE UDC PO PRN (15:20)
[2018-07-20] MEDS: QUETIAPINE FUMARATE 100MG TABLET PO SCH (21:35)
[2018-07-20] MEDS: SODIUM CHLORIDE 0.9% 1,000 ML IV SCH (21:54)
[2018-07-21] VITALS (15 sets, daily range): BP systolic 94–157; BP diastolic 46–78
[2018-07-21] MEDS: IPRATROPIUM/ALBUTEROL 0.5-3(2.5)MG/3ML NEB HHN SCH ×6 (00:31→21:12)
[2018-07-21] MEDS: SUCRALFATE 1 G/10 ML UDC PO SCH ×4 (01:53→18:21)
[2018-07-21] MEDS: CEFEPIME 1,000 MG in DEXTROSE 5% WATER 50 ML IV SCH ×2 (01:54→12:03)
[2018-07-21] MEDS: METRONIDAZOLE 500 MG PREMIX 100 ML IV SCH ×3 (06:14→22:55)
[2018-07-21] MEDS: BLOOD SUGAR DIAGNOSTIC STRIP TEST SCH ×4 (06:14→20:44)
[2018-07-21] MEDS: METHYLPREDNISOLONE SOD SUCC 40 MG/ML VIAL IV SCH ×2 (06:14→18:15)
[2018-07-21] MEDS: BUDESONIDE 0.5MG/2ML NEB HHN SCH ×3 (08:55→21:12)
[2018-07-21] MEDS: POTASSIUM CHLORIDE 20MEQ TABLET SR PO SCH ×2 (08:57→18:15)
[2018-07-21] MEDS: ASCORBIC ACID 500 MG TABLET PO SCH ×2 (08:57→20:44)
[2018-07-21] MEDS: LISINOPRIL 20MG TABLET PO SCH ×2 (08:57→20:44)
[2018-07-21] MEDS: SPIRONOLACTONE 25MG TABLET PO SCH ×2 (08:58→20:53)
[2018-07-21] MEDS: FOLIC ACID 1MG TABLET PO SCH (08:58)
[2018-07-21] MEDS: MULTIVITAMINS,THER W-MINERALS TABLET PO SCH (08:58)
[2018-07-21] MEDS: FERROUS SULFATE 325MG TABLET PO SCH ×3 (08:58→18:15)
[2018-07-21] MEDS: THIAMINE HCL 100MG TABLET PO SCH (08:58)
[2018-07-21] MEDS: PANTOPRAZOLE SODIUM 40 MG/VIAL IV SCH ×2 (08:59→17:00)
[2018-07-21] MEDS: INSULIN LISPRO 100 UNITS/ML SUBCUT SCH ×4 (08:59→20:45)
[2018-07-21] MEDS: GUAIFENESIN/DM 600MG/30MG ER TAB 12HR PO SCH ×2 (08:59→20:44)
[2018-07-21] MEDS: FUROSEMIDE 40MG/4ML VIAL IVP SCH ×2 (08:59→20:44)
[2018-07-21] MEDS: ACETAMINOPHEN 325MG TABLET PO PRN ×2 (11:03→18:24)
[2018-07-21] MEDS: SODIUM CHLORIDE 0.9% 1,000 ML IV SCH (12:04)
[2018-07-21 14:38] LABS: BG BASE EXCESS 3.2 mmol/L (-2.0-2.0); BG BILEVEL POS AIRWAY PRESSURE ST=15/5; BG CARBOXYHEMOGLOBIN 0.8 % (0.5-1.5); BG DEOXYHEMOGLOBIN 6.7 % (0.0-5.0); BG FRACTION INSPIRED OXYGEN 100; BG METHEMOGLOBIN 0.4 % (0.0-1.5); BG OXYGEN SATURATION 93.2 % (92.0-98.5); BG OXYHEMOGLOBIN 92.1 % (94.0-97.0); BG PCO2 43.8 mmHg (35.0-45.0); BG PH 7.424 (7.350-7.450); BG PO2 65.6 mmHg (75.0-100.0); BG PRESSURE SUPPORT 10; BG SAMPLE SITE LEFT RADIAL; BG TOTAL HEMOGLOBIN 10.5 g/dL (12.0-18.0); BG VENT MODE MASK - BIPAP; BG VENT RATE 20 set
[2018-07-21] MEDS: QUETIAPINE FUMARATE 100MG TABLET PO SCH (20:44)
[2018-07-21 22:03] LABS: BG BASE EXCESS 4.6 mmol/L (-2.0-2.0); BG BILEVEL POS AIRWAY PRESSURE 15/5; BG CARBOXYHEMOGLOBIN 0.5 % (0.5-1.5); BG FRACTION INSPIRED OXYGEN 100; BG HCO3 ACT 29.1 mmol/L (22.0-26.0); BG METHEMOGLOBIN 0.4 % (0.0-1.5); BG OXYGEN SATURATION 90.9 % (92.0-98.5); BG OXYHEMOGLOBIN 90.1 % (94.0-97.0); BG PCO2 43.5 mmHg (35.0-45.0); BG PH 7.444 (7.350-7.450); BG PO2 60.6 mmHg (75.0-100.0); BG SAMPLE SITE RIGHT RADIAL; BG TOTAL HEMOGLOBIN 10.4 g/dL (12.0-18.0); BG VENT MODE MASK - BIPAP; BG VENT RATE 20 set
[2018-07-22 00:33] VITALS: BP 138/72
== END 2018-07-22 01:08 | DRG 871 ==
LOC: ER 18:39 → EDBEDREQSVC 20:17 → 3WST 21:06 → EDBEDREQ 21:12 → EDBEDREQTM 21:12 → SUPCPDRO 21:35 → ENRESERV 23:06
PROVIDERS: ADMIT Internal Medicine; ATTEND Internal Medicine
PROC: 30233N1 Transfusion of Nonautologous Red Blood Cells into Peripheral Vein, Percutaneous Approach (ICD-10-PCS; principal; 2018-07-14)
PROC: 5A09557 Assistance with Respiratory Ventilation, Greater than 96 Consecutive Hours, Continuous Positive Airway Pressure (ICD-10-PCS; 2018-07-14)
PROC: 5A09357 Assistance with Respiratory Ventilation, Less than 24 Consecutive Hours, Continuous Positive Airway Pressure (ICD-10-PCS; 2018-07-19)
PROC: 5A09457 Assistance with Respiratory Ventilation, 24-96 Consecutive Hours, Continuous Positive Airway Pressure (ICD-10-PCS; 2018-07-20)
DX: A41.9 Sepsis, unspecified organism (principal); J96.01 Acute respiratory failure with hypoxia; I50.33 Acute on chronic diastolic (congestive) heart failure; K29.21 Alcoholic gastritis with bleeding; J69.0 Pneumonitis due to inhalation of food and vomit; K27.4 Chronic or unspecified peptic ulcer, site unspecified, with hemorrhage; D62 Acute posthemorrhagic anemia; E44.0 Moderate protein-calorie malnutrition; K56.600 Partial intestinal obstruction, unspecified as to cause; J44.1 Chronic obstructive pulmonary disease with (acute) exacerbation; I31.3 Pericardial effusion (noninflammatory); K57.90 Diverticulosis of intestine, part unspecified, without perforation or abscess without bleeding; E87.6 Hypokalemia; I11.0 Hypertensive heart disease with heart failure; E11.649 Type 2 diabetes mellitus with hypoglycemia without coma; E83.51 Hypocalcemia; F10.10 Alcohol abuse, uncomplicated; F41.9 Anxiety disorder, unspecified; I27.20 Pulmonary hypertension, unspecified; K21.9 Gastro-esophageal reflux disease without esophagitis; K70.9 Alcoholic liver disease, unspecified; R74.0 Nonspecific elevation of levels of transaminase and lactic acid dehydrogenase [LDH]; R29.6 Repeated falls; Z60.2 Problems related to living alone; M54.30 Sciatica, unspecified side; K80.20 Calculus of gallbladder without cholecystitis without obstruction; E11.65 Type 2 diabetes mellitus with hyperglycemia; K76.0 Fatty (change of) liver, not elsewhere classified; Z79.899 Other long term (current) drug therapy; Z88.6 Allergy status to analgesic agent; Z87.891 Personal history of nicotine dependence; Z71.89 Other specified counseling; Z68.24 Body mass index [BMI] 24.0-24.9, adult
CPT/HCPCS: 36415; 36430; 36600; 71045; 71275; 76700; 80048; 80053; 80076; 80305; 82270; 82375; 82607; 82728; 82746; 82805; 82962; 83036; 83540; 83550; 83735; 83880; 84484; 85014; 85018; 85025; 85027; 85379; 86850; 86900; 86920; 93005; 93306; 93970; 94640; 94660; 96374; 97162; 97166; 99285; C9113; G0482; J0692; J1815; J1940; J1956; J2920; J3475; J3480; J3490; J7030; J7050; J7060; J7611; J7620; J7626; P9016; Q9967